=== PATIENT | female | born 1965 | race Caucasian/White ===

== ENCOUNTER → 2019-01-06 16:08 | Outpatient (CLI) | payer OTHER, SELFPAY ==
--- NOTE | 2019-01-06 16:12 | DI.RAD.S_ITS ---
PROCEDURE: XR KNEE RT 3V INDICATIONS: atraumatic knee pain TECHNIQUE: 3 views of the knee were acquired. COMPARISON: None. FINDINGS: Bones: No fractures or dislocations. No suspicious bony lesions. Soft tissues: No joint effusion. No suspicious soft tissue calcifications. IMPRESSION: No trauma found down no stress fracture identified. By this examination a stress reaction is not seen but frequently marrow edema from stress reaction is only visualized by MR scanning. Dictated by: Mega Zhou M.D. on 01/06/2019 at 16:43 Approved by: Mega Zhou M.D. on 01/06/2019 at 16:44
== END ==
PROVIDERS: Visit Provider Physician Assistant
DX: M25.561 Pain in right knee (principal)
CPT/HCPCS: 73562